=== PATIENT | male | born 1960 | race Caucasian/White ===

== ENCOUNTER 2017-03-01 06:51 | Observation (INO) | payer BC ==
[~2017-03-01] VITALS: Ht 177.8 cm; Wt 75.4 kg
[2017-03-01] VITALS (13 sets, daily range): BP systolic 130–160; BP diastolic 71–83
--- NOTE | ~2017-03-01 | D ---
[place] [address] DISCHARGE SUMMARY Name: KATE YANCEY Room #: 203-P [facility] Sherly Cruz#: [id number] Admission: 03/01/17 Attend Phys: Cezar Garrido MD, Discharge: 03/02/17 Date of : 62 Report #: [id number] THIS REPORT FOR: //name// CC: Cezar Benavidez DATE OF SERVICE: 03/01/2017 DISCHARGE DIAGNOSES: 1. Progressive angina, unstable. 2. Coronary artery disease with successful stenting of the proximal portion of the LAD with a 2.5 x 22 mm Resolute medicated stent; normal left ventricular systolic function. 3. Dyslipidemia. 4. Hypertension. 5. Peripheral vascular disease with right SFA stenting recently. 6. Tobacco dependency. HISTORY OF PRESENT ILLNESS: For the complete details of history of present illness, see dictated history and physical. Briefly, the patient is a 56-year-old gentleman who presented with progressive leg claudication. He had an outpatient angiogram with stenting procedure, although during this procedure, he developed midsternal chest tightness consistent with angina and relieved with nitroglycerin. Coronary angiography was undertaken, which demonstrated a severe long tubular LAD stenosis. He was now admitted for staged intervention to this vessel. HOSPITAL COURSE: The patient underwent selective coronary angiography which reconfirmed the presence of this proximal LAD stenosis. There was mild plaquing in the circumflex and moderate 40% stenoses in the right coronary by outpatient angiography. Please see prior dictation and details. The patient underwent successful stenting of the proximal LAD with a 2.5 x 22 mm Resolute medicated stent, postdilated to 2.75 mm with a noncompliant balloon. His post-procedural course was uneventful. He was treated with aspirin, prasugrel, heparin bolus and Integrilin single bolus. He was ambulating with excellent groin hemostasis at the time of discharge. DISCHARGE MEDICATIONS: His discharge medicines were reconciled and included Bystolic 10 mg daily, Effient 10 mg daily for a 1-year course, atorvastatin 40 mg daily, aspirin 81 mg daily and Chantix. Smoking cessation counseling was performed. DISCHARGE DIET: Low fat, low cholesterol, heart healthy. [address] [place] [address] DISCHARGE SUMMARY Name: KATE YANCEY Amna Room #: 203-P [facility].#: [id number] Admission: 03/01/17 Attend Phys: Cezar Garrido MD, Discharge: 03/02/17 Date of : 62 Report #: [id number] DISCHARGE INSTRUCTIONS: Follow up with Dr. Fabiano Benavidez as previously arranged, follow up with myself in 4-6 weeks. DISCHARGE ACTIVITY: As instructed post-stenting. DISCHARGE CONDITION: Stable and improved. <ELECTRONICALLY SIGNED> By: Cezar Garrido MD, [facility] 03/06/17 0810 1551 1714 Cezar Garrido MD, FACC /nt
--- NOTE | ~2017-03-01 | EKG ---
[address] [place] [address] ELECTROCARDIOGRAM REPORT Name: KATE YANCEY Room #: 203-[facility]#: [id number] Admission: 03/01/17 Attend Phys: Cezar Garrido MD, Discharge: Date of : 62 Report #: [id number] THIS REPORT FOR: //name// [facility] Test Date: 2017-03-01 Test Time: 09:21:56 Pat Name: KATE YANCEY Department: Room: [facility] Gender: M Repairer Shoe Sticks: Amna PAN : 1960 Requested By: Cezar Garrido Order Number: [id number] MD: Apolinar Zuluaga Measurements Intervals [place] Rate: 44 P: 22 WV: 134 QRS: 94 QRSD: 99 T: 83 QT: 458 QTc: 392 Interpretive Statements Sinus bradycardia Borderline right axis deviation Compared to ECG 03/01/2017 07:27:36 Sinus rhythm no longer present Electronically Signed On 03-02-2017 8:21:06 CARDIAC CATH LAB TECHNOLOGIST by Apolinar Zuluaga [email or web address] <ELECTRONICALLY SIGNED> By: Apolinar Zuluaga MD 03/02/17 0821 0 0 Apolinar Zuluaga MD /KIERSTEN
--- NOTE | ~2017-03-01 | EKG ---
[address] [address] ELECTROCARDIOGRAM REPORT Name: KATE YANCEY Room #: [facility]#: [id number] Admission: 03/01/17 Attend Phys: Cezar Garrido MD, Discharge: Date of : 62 Report #: [id number] THIS REPORT FOR: //name// [facility] Test Date: 2017-03-01 Test Time: 07:27:36 Pat Name: KATE YANCEY Department: Room: Gender: Quality Improvement Coordinator: Amna PAN : 1960 Requested By: Cezar Garrido Order Number: [id number] MD: Apolinar Zuluaga Measurements Intervals [place] Rate: 50 P: 4 NM: 120 QRS: 80 QRSD: 92 T: 78 QT: 453 QTc: 414 Interpretive Statements Sinus rhythm No previous ECG available for comparison Electronically Signed On 03-01-2017 9:06:43 FIRE TRUCK DRIVER by Apolinar Zuluaga [email or web address] <ELECTRONICALLY SIGNED> By: Apolinar Zuluaga MD 03/01/17 0906 0727 6 Apolinar Zuluaga MD /KIERSTEN
--- NOTE | ~2017-03-01 | EKG ---
[address] [address] ELECTROCARDIOGRAM REPORT Name: KATE YANCEY Room #: 203-[facility]..#: [id number] Admission: 03/01/17 Attend Phys: Cezar Garrido MD, Discharge: Date of : 62 Report #: [id number] THIS REPORT FOR: //name// [facility] Test Date: 2017-03-02 Test Time: 08:11:33 Pat Name: KATE YANCEY Department: Room: 203 Gender: M Head Mixer: hakeem : 1960 Requested By: Cezar Garrido Order Number: [id number] MD: Apolinar Zuluaga Measurements Intervals [place] Rate: 42 P: 16 MT: 121 QRS: 83 QRSD: 104 T: 81 QT: 503 QTc: 421 Interpretive Statements Sinus bradycardia Compared to ECG 03/01/2017 07:27:36 Sinus rhythm no longer present Electronically Signed On 03-02-2017 8:31:49 LEATHER GRADER by Apolinar Zuluaga [email or web address] <ELECTRONICALLY SIGNED> By: Apolinar Zuluaga MD 03/02/1731 0 0 Apolinar Zuluaga MD /KIERSTEN
--- NOTE | ~2017-03-01 | CATHLAB ---
[facility] [address] [place] [address] INVASIVE PROCEDURE REPORT Name: KATE YANCEY JR Room #: 203-P [facility] IN [facility]#: [id number] Admission: 03/01/17 Attend Phys: Cezar Garrido, Discharge: Date of : 62 Date of Service: 03/01/17 1544 Report #: [id number] THIS REPORT FOR: //name// APPROVED REPORT Patient Details Patient Status: Out-Patient Room #: The patient is a 56 year-old male Event Personnel Cezar Garrido Unmanned Equipment Operator, Jolynn Valdez, Pastor Raines Penny, Wes RN Procedures Performed Art Access - R femoral artery* 41407 Initial Mod Sed Same Phys/QHP Gr5y 640257 68121 Mod Sed Same Phys/QHP Ea [id number] KENNA Place w/wo Plasty Single LAD 931344 Hemostasis with Manual pressure Procedure Narrative The patient was brought electively to the Cardiac Catheterization Laboratory and was prepped and draped in a sterile manner. The Right Groin^ was infiltrated with 1% Lidocaine subcutaneous anesthesia. A PINNACLE 6FR Sheath #[id number] sheath was inserted into the RFA^. Coronary angiography was performed using coronary diagnostic catheters. The left coronary system was accessed and visualized with a LAUNCHER 6FR EBU 3.5 #[id number] catheter. The patient tolerated the procedure well and there were no complications associated with the procedure. There was no hematoma. Intraoperative Conscious Sedation Sedation start time: 08:07 Case end Time: 08:52 Fentanyl 25.0 mcg Versed 1.5 mg Fluoro Time: 6.45 minutes Dose: DAP 3708.10 cGycm2 533 mGy Contrast Type and Amount: Visipaque 285 ml Diagnostic Cath Left Main Normal LAD Long tubular proximal LAD stenosis of 85% Circumflex Large, mild plaquing Right Coronary Not injected. See original, recent diagnostic report [facility] [employer] [place] [address] INVASIVE PROCEDURE REPORT Name: KATE YANCEY Room #: 203-P [facility]#: [id number] Admission: 03/01/17 Attend Phys: Cezar Garrido, Discharge: Date of : 62 Date of Service: 03/01/17 1544 Report #: [id number] Hemodynamics The aortic pressure is 176/85 mmHg with a mean of 120 mmHg. PCI Technique Lesion Anticoagulation was achieved with Heparin. Percutaneous coronary intervention was performed on the proximal left anterior descending artery segment. A LAUNCHER 6FR EBU 3.5 #[id number] Guide Catheter was used to engage the Left Main ostium. A Luge Wire .014 x 182CM #[id number] Interventional Guidewire was used to cross the lesion. BALLOON DILATION A Balloon catheter Euphora RX 2.5 x 12 #[id number] was inserted and inflated up to 12.00atm for 15seconds. Repeat angiography revealed the following post-dilatation results: Moderate residual stenosis prior to stenting. Additional Inflation: 10.00atm for 30seconds. STENT DEPLOYMENT A drug-eluting stent RESOLUTE RX 2.5 X 22 #[id number] was inserted and inflated up to 12.00atm for 36seconds. POST STENT DEPLOYMENT BALLOON DILATION A Balloon catheter TREK NC RX 2.75 X 15 #[id number] was inserted and inflated up to 12.00atm for 23seconds. Additional Inflation: 18.00atm for 30seconds. Additional Inflation: 20.00atm for 18seconds. Final angiography reveals 0 % stenosis with ZION 3 flow. Conclusion 1. Severe, long tubular stenosis involving proximal LAD successfully stented with a 2.5 x 22mm Resolute medicated stent 2. For details of the full diagnostic procedure, see original dictated note. Recommendations Smoking Cessation Cardiac Rehabilitation Referral Aggressive Medical Therapy Medications Administered Aspirin (any) Beta Daria (any) Statin (any) [facility] [address] [address] INVASIVE PROCEDURE REPORT Name: KATE YANCEY Room #: 203-P [facility] IN .R.#: [id number] Admission: 03/01/17 Attend Phys: Cezar Garrido, Discharge: Date of : 62 Date of Service: 03/01/17 1544 Report #: [id number] Cardiac Rehabilitation Referral Smoking Cessation <ELECTRONICALLY SIGNED> By: Cezar Garrido MD, [facility] 03/01/17 1544 1544 1544 Cezar Garrido MD, FAC /INF
[2017-03-01] MEDS ORDERED: EFFIENT10 MG PO (07:08)
[2017-03-01] MEDS ORDERED: BYSTOLIC 5 MG5 M1 PO (07:08)
[2017-03-01] MEDS ORDERED: ATORVASTATIN CA40 MG PO (07:09)
[2017-03-01] MEDS ORDERED: ASPIRIN81 M2 PO (07:09)
[2017-03-01] MEDS ORDERED: IMDUR 60 MG TAB60 M1 PO (07:09)
[2017-03-01] MEDS ORDERED: CHANTIX1 MG PO (07:10)
[2017-03-02 02:45] VITALS: BP 179/91
[2017-03-02 04:15] VITALS: BP 181/89
[2017-03-02 04:50] LABS: HEMATOCRIT 45.6 % (42.0-52.0); HEMOGLOBIN 15.5 gm/dL (14.0-18.0); MCH 32.8 pg (26.0-34.0); MCHC 34.1 g/dL (28.0-37.0); MCV 96.2 fL (80.0-100.0); RBC 4.74 mil/uL (4.50-6.00); RDW 14.6 % (10.5-14.5); WBC 20.2 thou/uL (4.0-11.0)
[2017-03-02 05:07] LABS: ANION GAP 7 mmol/L (7-16); BUN 19 mg/dL (7-18); CALCIUM 9.1 mg/dL (8.5-10.1); CHLORIDE 105 mmol/L (98-107); CHOLESTEROL 141 mg/dL (<200); CO2 27 mmol/L (21-32); CREATININE 1.1 mg/dL (0.7-1.3); GLUCOSE 123 mg/dL (74-106); HDL CHOLESTEROL 72 mg/dL (>40); LDL CHOLESTEROL 60 mg/dL (<100); POTASSIUM 4.4 mmol/L (3.5-5.1); SODIUM 139 mmol/L (136-145); TRIGLYCERIDE 45 mg/dL (<150); TROPONIN-I 0.05 ng/mL (<0.06); VLDL 9 mg/dL (<40)
[2017-03-02 05:13] LABS: SERUM ASSESSMENT Clear
[2017-03-02 08:03] VITALS: BP 170/86
[2017-03-02 10:50] VITALS: BP 170/86
== END 2017-03-02 12:04 | disposition home or self-care (01) ==
LOC: CATH 06:51 → 2N 12:10 → CATH 14:07 → 2N 03-02 12:04
PROVIDERS: Internal Medicine
DX: I25.110 Atherosclerotic heart disease of native coronary artery with unstable angina pectoris (principal); E78.5 Hyperlipidemia, unspecified; I73.9 Peripheral vascular disease, unspecified; I12.9 Hypertensive chronic kidney disease with stage 1 through stage 4 chronic kidney disease, or unspecified chronic kidney disease; N18.9 Chronic kidney disease, unspecified; G47.33 Obstructive sleep apnea (adult) (pediatric); I77.9 Disorder of arteries and arterioles, unspecified; E78.00 Pure hypercholesterolemia, unspecified; F17.210 Nicotine dependence, cigarettes, uncomplicated; Z79.899 Other long term (current) drug therapy

== ENCOUNTER → 2019-10-07 | Outpatient (CLI) | payer BC ==
[~2019-10-07] MED LIST: ASPIRIN81 M2 PO; ATORVASTATIN CA40 MG PO; BYSTOLIC 5 MG5 M1 PO; CHANTIX1 MG PO; EFFIENT10 MG PO; IMDUR 60 MG TAB60 M1 PO
== END ==
LOC: SJCVCIMAG 07:38
PROVIDERS: ATTEND Internal Medicine
DX: I65.23 Occlusion and stenosis of bilateral carotid arteries (principal)